=== PATIENT | female | born 1955 | race Caucasian/White ===

== ENCOUNTER 2020-01-01 16:44 | Emergency (ER) | payer MEDICARE, OTHER ==
[2020-01-01] MEDS ORDERED: Ondansetron 4 MG Tab.DIS PO ONE (17:58)
[2020-01-01] MEDS ORDERED: Acetaminophen/oxyCODONE 325-5 MG Tab PO ONE ×2 (17:58→19:06)
--- NOTE | 2020-01-01 18:06 | EDM.PDOC ---
ED HPI GENERAL MEDICAL PROBLEM - General Chief Complaint: Upper Extremity Injury/Pain Stated Complaint: fell and injured left arm Time Seen by Provider: 01/01/20 16:58 Left Wrist Pain Score (Numeric/FACES): 7 - Related Data Allergies Allergy/AdvReac Type Severity Reaction Status Date / Time No Known Allergies Allergy Verified 01/01/20 17:11 Home Meds: Home Meds Acetaminophen/oxyCODONE [Percocet 325-5 MG] 1 tab PO Q6H #15 tab 01/01/20 [Rx] amLODIPine [Norvasc] 10 mg PO DAILY 01/01/20 [History] atorvaSTATin [Lipitor] 10 mg PO DAILY 01/01/20 [History] hydroCHLOROthiazide [Hydrochlorothiazide] 12.5 mg PO DAILY 01/01/20 [History] metFORMIN [Glucophage] 500 mg PO BID 01/01/20 [History] Past Medical History HEENT History: Reports: None Cardiovascular History: Reports: Hypertension Respiratory History: Reports: None Gastrointestinal History: Reports: None Genitourinary History: Reports: None PARAMEDIC History: Reports: Neurological History: Reports: None Psychiatric History: Reports: None Endocrine/Metabolic History: Reports: None Hematologic History: Reports: None Immunologic History: Reports: None Oncologic (Cancer) History: Reports: None Dermatologic History: Reports: None - Infectious Disease History Infectious Disease History: Reports: None - Past Surgical History Head Surgeries/Procedures: Reports: None GI Surgical History: Reports: Appendectomy Musculoskeletal Surgical History: Reports: Other (See Below) Other Musculoskeletal Surgeries/Procedures:: R wrist sx Social & Family History - Tobacco Use Smoking Status *Q: Never Smoker - Recreational Drug Use Recreational Drug Use: No Review of Systems - Review of Systems Review Of Systems: See Below ED EXAM, GENERAL - Physical Exam Exam: See Below Course - Vital Signs Text/Narrative:: A 3 view wrist and two-view forearm were read and interpreted by me there is a comminuted distal radius fracture with 100% displacement of the distal radius to the posterior there is also a distal chip fracture to the ulna. A hematoma block using 10 mils of 0.5 bupivacaine was placed into the fracture site on the dorsal aspect of the left wrist good analgesic results patient was then hung in finger traps allowed to apply traction by weight for 10 minutes and then it was manipulated into a more anatomically correct position and splinted by me. Post splinting x-rays were obtained. Last Recorded V/S: Last Vital Signs Temp 35.7 C L 01/01/20 17:00 Pulse 66 01/01/20 17:00 Resp 18 01/01/20 17:00 BP 121/67 01/01/20 17:00 Pulse Ox 100 01/01/20 17:00 - Orders/Labs/Meds Orders: Active Orders 24 hr Category Date Time Status Wrist 2V Lt [CR] Stat Exams 01/01/20 19:05 Ordered Meds: Medications Discontinued Medications Generic Name Dose Route Start Last Admin Trade Name Donita PRN Reason Stop Dose Admin Bupivacaine HCl 10 ml 01/01/20 18:40 01/01/20 18:59 Sensorcaine-Mpf 0.5% INJECT 01/01/20 18:41 10 ml ONETIME ONE Administration Ondansetron HCl 4 mg 01/01/20 17:58 01/01/20 18:06 Zofran Odt PO 01/01/20 17:59 4 mg ONETIME ONE Administration Oxycodone/Acetaminophen 2 tab 01/01/20 17:58 01/01/20 18:06 Percocet 325-5 Mg PO 01/01/20 17:59 2 tab ONETIME ONE Administration Departure - Departure Time of Disposition: 19:30 Disposition: DC[facility] to [facility] 05 Condition: Good Clinical Impression: Left wrist fracture - Discharge Information *PRESCRIPTION DRUG MONITORING PROGRAM REVIEWED*: Not Applicable *COPY OF PRESCRIPTION DRUG MONITORING REPORT IN PATIENT AVIS: Not Applicable Prescriptions: Acetaminophen/oxyCODONE [Percocet 325-5 MG] 1 tab PO Q6H #15 tab Instructions: Wrist Fracture Treated With Immobilization, [id number] Referrals: PCP,Not In Area [Primary Care Provider] - Forms: ED Department Discharge Additional Instructions: The following information is given to patients seen in the emergency department who are being discharged to home. This information is to outline your options for follow-up care. We provide all patients seen in our emergency department with a follow-up referral. The need for follow-up, as well as the timing and circumstances, are variable depending upon the specifics of your emergency department visit. If you don't have a primary care physician on staff, we will provide you with a referral. We always advise you to contact your personal physician following an emergency department visit to inform them of the circumstance of the visit and for follow-up with them and/or the need for any referrals to a consulting specialist. The emergency department will also refer you to a specialist when appropriate. This referral assures that you have the opportunity for follow-up care with a specialist. All of these measure are taken in an effort to provide you with optimal care, which includes your follow-up. Under all circumstances we always encourage you to contact your private physician who remains a resource for coordinating your care. When calling for follow-up care, please make the office aware that this follow-up is from your recent emergency room visit. If for any reason you are refused follow-up, please contact the [facility] Emergency Department at and asked to speak to the emergency department charge nurse. [facility] [address], [address] [place] [address] Sepsis Event Note (ED) - Evaluation Sepsis Screening Result: No Definite Risk - Focused Exam Vital Signs: Vital Signs Temp Pulse Resp BP Pulse Ox 01/01/20 17:00 35.7 C L 66 18 121/67 100 - My Orders Last 24 Hours: My Active Orders 01/01/20 19:05 Wrist 2V Lt [CR] Stat - Assessment/Plan Last 24 Hours: My Active Orders 01/01/20 19:05 Wrist 2V Lt [CR] Stat
--- NOTE | 2020-01-01 18:35 | CR ---
Left wrist: 3 views left wrist were obtained. Good lateral view was not obtained. Comminuted distal radial fracture is seen. Ulnar styloid avulsion fracture is. Soft tissue swelling is present. Posterior displacement of the distal radial fragment is seen. The amount of posterior displacement is difficult to measure without a good lateral view. Soft tissue swelling is noted. Impression: 1. Comminuted distal radial fracture with posterior displacement of the distal fragment. 2. Ulnar styloid avulsion fracture. 3. Soft tissue swelling. Diagnostic code #5 This report was dictated in MDT
[2020-01-01] MEDS ORDERED: Bupivacaine 0.5% 10 ML SDV INJECT ONE (18:40)
--- NOTE | 2020-01-01 18:49 | CR ---
Left forearm: 2 views of the left forearm were obtained. Comminuted distal radial fracture is noted. There is displacement by almost one shaft width of the posterior radius in a dorsal direction. Articular extension is seen in the fracture fragments. Ulnar styloid avulsion fracture is noted. No proximal bony abnormality is seen within the forearm. Soft tissue swelling is noted. Impression: 1. Comminuted distal radial fracture with articular extension. 2. Significant posterior displacement is seen by almost a shaft width. Diagnostic code #5 This report was dictated in MDT
--- NOTE | 2020-01-02 16:40 | CR ---
Left wrist: 2 views of the left wrist were obtained. Comparison: Prior left wrist exam performed earlier on the same day (6:17 PM). Findings: Comminuted distal radial fracture is seen. Distal radius shows posterior displacement by a shaft width. Displaced ulnar styloid process fracture is seen. Articular extension is seen of the radial fracture. Fiberglas splint is in place. Diffuse soft tissue swelling is noted. Impression: 1. Displaced distal radial fracture by almost a shaft width. 2. Mildly displaced ulnar styloid avulsion fracture. Diagnostic code #3 This report was dictated in MDT
== END 2020-01-01 19:53 | disposition home or self-care (01) ==
LOC: MW.ED 16:44
DX: S52.502A Unspecified fracture of the lower end of left radius, initial encounter for closed fracture (principal); S52.612A Displaced fracture of left ulna styloid process, initial encounter for closed fracture; I10 Essential (primary) hypertension; Z90.49 Acquired absence of other specified parts of digestive tract; Z79.899 Other long term (current) drug therapy; W01.0XXA Fall on same level from slipping, tripping and stumbling without subsequent striking against object, initial encounter
CPT/HCPCS: 25605; 73090; 73100; 73110; 99284; A9270; J3490; 24640; 99283